=== PATIENT | male | born 1995 | race Caucasian/White ===

== ENCOUNTER 2016-08-04 16:07 | Emergency (ER) | payer SELFPAY ==
[~2016-08-04] VITALS: Ht 170.2 cm; Wt 65.9 kg
[2016-08-04 16:08] VITALS: BP 121/58; PULSE 105; TEMP 99.1
[2016-08-04] MEDS ORDERED: FLEXERIL 1010 MG/TAB PO (17:14)
== END 2016-08-04 17:29 | disposition home or self-care (01) ==
LOC: COL.ER 16:07
DX: S01.112A Laceration without foreign body of left eyelid and periocular area, initial encounter (principal); V43.52XA Car driver injured in collision with other type car in traffic accident, initial encounter; Y92.410 Unspecified street and highway as the place of occurrence of the external cause; Z23 Encounter for immunization

== ENCOUNTER 2016-08-13 20:57 | Emergency (ER) | payer SELFPAY ==
[~2016-08-13 20:57] MED LIST: FLEXERIL 1010 MG/TAB PO
[2016-08-13 21:04] VITALS: BP 128/64; PULSE 99; TEMP 98
== END 2016-08-13 21:19 | disposition home or self-care (01) ==
LOC: COL.ER 20:57
DX: Z48.02 Encounter for removal of sutures (principal)